=== PATIENT | female | born 1965 | race Two or more races ===

== ENCOUNTER 2021-12-15 08:33 | Emergency (ER) | payer MEDICAID, OTHER ==
[~2021-12-15] VITALS: Ht 154.9 cm; Wt 60.8 kg
[2021-12-15 09:09] VITALS: BP 142/79
[2021-12-15 09:28] LABS: Basophils # (auto) 0 10 ^3/uL (0-0.2); Basophils % (auto) 0.2 % (0.0-2.0); Eosinophils # (auto) 0 10 ^3/uL (0-0.8); Eosinophils % (auto) 0.7 % (0.0-7.0); Hematocrit 41.6 % (36.0-46.0); Hemoglobin 13.6 g/dL (12.2-16.2); Lymphocytes # (auto) 1.4 10 ^3/uL (0.4-5.4); Lymphocytes % (auto) 18.9 % (10.0-50.0); Mean Corpuscular Hemoglobin 27.2 pg (28.0-32.0); Mean Corpuscular Hgb Conc. 32.7 g/dL (32.0-36.0); Mean Corpuscular Volume 83.3 fL (80.0-100.0); Monocytes # (auto) 0.4 10 ^3/uL (0-1.3); Monocytes % (auto) 5.3 % (0.0-12.0); Neutrophils # (auto) 5.6 10 ^3/uL (1.6-8.6); Neutrophils % (auto) 74.9 % (37.0-80.0); Red Blood Cells 4.99 10^6/uL (4.0-5.20); Red Cell Distribution Width 13.7 % (11.8-14.3); White Blood Cell 7.4 10^3/uL (4.4-10.8)
[2021-12-15 09:35] LABS: Urine Bacteria NONE SEEN /hpf (None Seen); Urine Blood Negative /uL (Negative); Urine WBC <1 /hpf (0 - 5)
[2021-12-15] MEDS ORDERED: ONDANSETRON ODT 4 MG TAB PO ONE (09:45)
[2021-12-15 09:52] LABS: Albumin 3.7 g/dL (3.4-5.0); BUN/Creatinine Ratio 11.7; Bilirubin, Total 0.4 mg/dL (0.2-1.0); Calcium 9.2 mg/dL (8.5-10.1); Total Protein 8.6 g/dL (6.4-8.2)
[2021-12-15] MEDS ORDERED: ONDA-144 PO (10:23)
== END 2021-12-15 10:25 | disposition home or self-care (01) ==
LOC: ER 08:33
DX: R11.0 Nausea (principal); R19.7 Diarrhea, unspecified; R94.31 Abnormal electrocardiogram [ECG] [EKG]
CPT/HCPCS: 36415; 80053; 81001; 85025; 93005; 99284; Q0162

== ENCOUNTER 2021-12-30 09:11 | Emergency (ER) | payer MEDICAID ==
[~2021-12-30] VITALS: Ht 154.9 cm; Wt 60.3 kg
[~2021-12-30 09:11] MED LIST: ONDA-144 PO
[2021-12-30] MEDS ORDERED: OME40GT GT (10:02)
[2021-12-30 10:14] VITALS: BP 133/84
== END 2021-12-30 10:16 | disposition home or self-care (01) ==
LOC: ER 09:11
DX: F41.1 Generalized anxiety disorder (principal); R94.31 Abnormal electrocardiogram [ECG] [EKG]
CPT/HCPCS: 93005